=== PATIENT | female | born 1970 | race Caucasian/White ===

== ENCOUNTER 2017-07-01 09:45 | Emergency (ER) | payer MEDICAID ==
[~2017-07-01] VITALS: Ht 160 cm; Wt 70.5 kg
[2017-07-01 09:48] VITALS: Ht 160 cm; Wt 70.5 kg
--- NOTE | 2017-07-01 10:16 | ERD ---
ER Documentation Chief Complaint Date/Time DATE: 07/01/17 TIME: 10:14 Chief Complaint vaginal pain x 3 days HPI Patient is a 46-year-old female with pre diabetes who presents to the emergency department for concerns of vaginal pain 3 days. Patient denies any suprapubic or flank pain. Patient does report urinary frequency and dysuria 1 week. Patient is not sexually active. Patient denies any fevers, chills, nausea, vomiting, abdominal pain, lower back pain or loss consciousness. Patient does have a history of UTIs and states that she feels as if her symptoms are similar at this time. ROS All systems reviewed and are negative except as per history of present illness. Medications Home Meds Active Scripts Nitrofurantoin Monohyd Macrocr* (Macrobid*) 100 Mg Capsr, 100 MG PO BID for 5 Days, CAP Prov:DARCY LAGOS PA-C 07/01/17 Allergies Allergies: Coded Allergies: No Known Allergy (Unverified , 07/01/17) PMhx/Soc Hx Miscellaneous Medical Probl: Yes (pre diabetes) Hx Alcohol Use: No Hx Substance Use: No Hx Tobacco Use: No FmHx Family History: No diabetes Physical Exam Vitals Vital Signs Date Time Temp Pulse Resp B/P Pulse Ox O2 Delivery O2 Flow Rate FiO2 07/01/17 09:48 97.2 79 18 126/60 98 Physical Exam GENERAL: Well-developed, well-nourished female. Appears in no acute distress. HEAD: Normocephalic, atraumatic. EYES: Pupils are equally reactive bilaterally. EOMs grossly intact. No conjunctival erythema. ENT: Moist mucous membranes. No uvula deviation. No kissing tonsils. NECK: Supple. No meningismus. Normal range of motion of the neck. LUNG: Clear to auscultation bilaterally. No rhonchi, wheezing, rales or coarse breath sounds. HEART: Regular rate and rhythm. No murmurs, rubs or gallops. ABDOMEN: Soft and nondistended. Tender to palpation in the suprapubic region positive bowel sounds in all four quadrants. No rebound tenderness, no guarding. (-) McBurney's point tenderness. No CVA tenderness. FEMALE GENITALIA: Normal external female genitalia. Outer vaginal labia appear erythematous. No active discharge or bleeding. EXTREMITIES: Equal pulses bilaterally. No peripheral clubbing, cyanosis or edema. No unilateral leg swelling. NEUROLOGIC: Alert and oriented. Moving all four extremities without any difficulty. Normal speech. Steady gait. SKIN: Normal color. Warm and dry. No rashes or lesions. Results 24 hrs Laboratory Tests Test 07/01/17 10:42 Bedside Urine pH (LAB) 6.5 Bedside Urine Protein (LAB) 1+ Bedside Urine Glucose (UA) 0.50% Bedside Urine Ketones (LAB) Trace Bedside Urine Blood 1+ Bedside Urine Nitrite (LAB) Negative Bedside Urine Leukocyte Esterase (L 1+ Procedures/MDM MEDICAL DECISION MAKING: Patient is a 46-year-old female presents with concerns of vaginal pain, dysuria and frequency. Vital signs were reviewed. Patient was afebrile. Urine dip shows 1+ leukocyte esterase, 1+ blood and 50% glucose. Urine was negative. Given these findings, the patient's presentation is most consistent with urinary tract infection. I have a much lower clinical concern for pyelonephritis, nephrolithiasis, appendicitis, diverticulitis, , ectopic , PID, ovarian torsion, or tubo-ovarian abscess. PRESCRIPTIONS: Macrobid DISCHARGE: At this time, patient is stable for discharge and outpatient management. I have instructed the patient to follow-up with his/her primary care physician in 1-2 days. Patient should repeat UA in 2 weeks to check for resolution of urinary tract infection. If symptoms persist, patient may need to see a specialist for further examinations and testing. I have instructed the patient to promptly return to the ER at any time for any new or worsening symptoms including increased pain, fever, nausea, vomiting, urinary changes or weakness. The patient and/or family expressed understanding of and agreement with this plan. All questions were answered. Home care instructions were provided. Patient's urine did show presence of glucose. I had discussion with the patient about the risk of diabetes. I have advised the patient to follow up with his/ her primary care physician for outpatient monitoring and treatment for elevated blood sugar levels in 2-3 days. I have instructed the patient to return to the ER for any new or worsening symptoms including chest pain, shortness of breath, headache, confusion, abdominal pain, nausea, vomiting, weakness or LOC. Departure Diagnosis: Primary Impression: UTI (urinary tract infection) Urinary tract infection type: acute cystitis Hematuria presence: with hematuria Qualified Code: N30.01 - Acute cystitis with hematuria Patient Instructions: Understanding Urinary Tract Infections (UTIs) Referrals: COUNTS INCLUDE 234 BEDS AT THE [facility] YOU HAVE RECEIVED A MEDICAL SCREENING EXAM AND THE RESULTS INDICATE THAT YOU DO NOT HAVE A CONDITION THAT REQUIRES URGENT TREATMENT IN THE EMERGENCY DEPARTMENT. FURTHER EVALUATION AND TREATMENT OF YOUR CONDITION CAN WAIT UNTIL YOU ARE SEEN IN YOUR DOCTORS OFFICE WITHIN THE NEXT 1-2 DAYS. IT IS YOUR RESPONSIBILITY TO MAKE AN APPOINTMENT FOR FOLOW-UP CARE. IF YOU HAVE A PRIMARY DOCTOR --you should call your primary doctor and schedule an appointment IF YOU DO NOT HAVE A PRIMARY DOCTOR YOU CAN CALL OUR PHYSICIAN REFERRAL HOTLINE AT IF YOU CAN NOT AFFORD TO SEE A PHYSICIAN YOU CAN CHOSE FROM THE FOLLOWING [facility] [address] [facility]. [facility] [address] [facility]. [facility] [place] [address] [facility] [facility] [address] [facility] [facility] [address] [facility]. [facility] [address] [facility]. [facility] YOU HAVE RECEIVED A MEDICAL SCREENING EXAM AND THE RESULTS INDICATE THAT YOU DO NOT HAVE A CONDITION THAT REQUIRES URGENT TREATMENT IN THE EMERGENCY DEPARTMENT. FURTHER EVALUATION AND TREATMENT OF YOUR CONDITION CAN WAIT UNTIL YOU ARE SEEN IN YOUR DOCTORS OFFICE WITHIN THE NEXT 1-2 DAYS. IT IS YOUR RESPONSIBILITY TO MAKE AN APPOINTMENT FOR FOLOW-UP CARE. IF YOU HAVE A PRIMARY DOCTOR --you should call your primary doctor and schedule and appointment IF YOU DO NOT HAVE A PRIMARY DOCTOR YOU CAN CALL OUR PHYSICIAN REFERRAL HOTLINE AT . IF YOU CAN NOT AFFORD TO SEE A PHYSICIAN YOU CAN CHOSE FROM THE FOLLOWING [facility]: [facility] [address] [place] [address] [facility] [address] [place] [address] [facility] [address] [place] [address] SENIOR [employer]ICE [place] [address] [facility] [address] [place] [address] OFFICE FAX , [address] [address] [place], [place] [id number] [address] CAMACHO, [place] [address] [place] [address] [address] CASEY, [facility] [address] [facility], [address], [facility] [address] [address]ITO, [facility] [address] [place] [address] [facility] [address] [place] [address] [address] [facility] [address] - [address]FF[address] [facility] [address] [address], [place] [address] [facility]. [address], [place] [address] [address] DRAPER, [facility] [address] [place], [place] [id number] Additional Instructions: Call your primary care doctor/OBGYN TOMORROW for an appointment during the next 1-2 days.See the doctor sooner or return here if your condition worsens before your appointment time. DARCY LAGOS PA-C Jul 01, 2017 10:16
[2017-07-01 10:36] LABS: URINE BLOOD (Dip) POC 1+ (NEGATIVE)
[2017-07-01] MEDS ORDERED: NITR-58 PO (11:01)
== END 2017-07-01 11:24 | disposition home or self-care (01) ==
LOC: FTE 09:45
DX: N30.01 Acute cystitis with hematuria (principal)
CPT/HCPCS: 81003; Z7502; 99283

== ENCOUNTER 2017-11-28 17:03 | Emergency (ER) | END 2017-11-28 20:31 | disposition home or self-care (01) ==

== ENCOUNTER 2017-12-07 09:09 | Emergency (ER) | END 2017-12-07 10:38 | disposition home or self-care (01) ==

== ENCOUNTER 2018-09-07 13:39 | Emergency (ER) | END 2018-09-07 15:59 | disposition home or self-care (01) ==